=== PATIENT | female | born 1945 | race Caucasian/White ===

== ENCOUNTER 2018-12-07 12:03 | Day surgery (SDC) | payer MEDICARE ==
[2018-12-07] MEDS ORDERED: PROPOFOL 40 ML (13:56)
[2018-12-07] MEDS ORDERED: LIDOCAINE 2% (SDV) 5 ML INJ (13:56)
[2018-12-07] MEDS ORDERED: ONDANSETRON 4 MG INJ IV (14:00)
[2018-12-07] MEDS ORDERED: EPHEDrine SULFATE 50 MG/5 ML SYG (14:15)
== END 2018-12-07 15:42 | disposition home or self-care (01) ==
LOC: GIL 12:03
DX: Z85.048 Personal history of other malignant neoplasm of rectum, rectosigmoid junction, and anus (principal)
CPT/HCPCS: 45378